=== PATIENT | female | born 1950 | race Caucasian/White ===

== ENCOUNTER 2022-03-24 02:05 | Emergency (ER) | payer MEDICARE, MEDICAID ==
[~2022-03-24] VITALS: Ht 157.5 cm; Wt 74.8 kg
--- NOTE | 2022-03-24 02:30 | NUR ---
Dr Barillas at bedside, MSE in progress.
[2022-03-24 03:06] LABS: ABG BASE EXCESS 1.5 mmol/L; ABG HCO3 25.1 mmol/L; ABG PCO2 35.9 mmHg (35.0-45.0); ABG PH 7.462 (7.350-7.450); ABG PO2 75.2 mmHg (75.0-100.0); ABG SITE LEFT RADIAL; ABG TOTAL HEMOGLOBIN 12.2 G/dL (12.0-16.0); COHb 0.3 % (0.5-1.5); MetHb 0.1 % (0.0-1.5); O2Hb 95.8 % (94.0-97.0); VENT MODE ROOM AIR
[2022-03-24 03:20] LABS: HEMATOCRIT 33.7 % (31.2-41.9); MEAN CORPUSCULAR HEMOGLOBIN 29.1 uug (24.7-32.8); MEAN CORPUSCULAR VOLUME 84.4 fL (75.5-95.3); PLATELET COUNT (AUTO) 294 K/uL (179-408)
[2022-03-24 03:28] LABS: CARBON DIOXIDE 27 mmol/L (21-32); CHLORIDE 93 mmol/L (98-107); CREATININE 0.9 mg/dL (0.6-1.3); GLUCOSE 95 mg/dL (74-106); POTASSIUM 3.2 mmol/L (3.5-5.1); UREA NITROGEN, BLOOD 8 mg/dL (7-18)
[2022-03-24 03:44] LABS: ALANINE AMINOTRANSFERASE 33 U/L (14-59); ALKALINE PHOSPHATASE 66 U/L (50-136); ASPARTATE AMINOTRANSFERASE 15 U/L (15-37); BILIRUBIN,TOTAL 0.5 mg/dL (0.2-1.0); CREATINE KINASE, TOTAL 245 U/L (26-192); LACTATE DEHYDROGENASE 191 U/L (81-234); TOTAL PROTEIN, SERUM 7.4 g/dL (6.4-8.2)
[2022-03-24] MEDS ORDERED: ALBUTEROL SULFATE 2.5 MG/3 ML NEBU NEB ONE (04:45)
[2022-03-24] MEDS ORDERED: IPRATROPIUM BROMIDE 0.5 MG/2.5 ML NEBU NEB ONE (04:45)
[2022-03-24] MEDS ORDERED: ALBUTEROL SULFATE 2.5 MG/3 ML NEBU ONE (04:50)
[2022-03-24] MEDS ORDERED: IPRATROPIUM BROMIDE 0.5 MG/2.5 ML NEBU ONE (04:51)
[2022-03-24] MEDS ORDERED: POTASSIUM CHLORIDE 20 MEQ TAB.PRT.SR PO ONE (05:15)
[2022-03-24] MEDS ORDERED: POTASSIUM CHLORIDE 20 MEQ TAB.PRT.SR ONE (05:18)
[2022-03-24 05:37] LABS: *BILIRUBIN,URIN NEGATIVE (NEGATIVE); *CLARITY,URINE CLEAR (CLEAR); *COLOR,URINE YELLOW (YELLOW); *KETONES,URINE NEGATIVE (NEGATIVE); *UROBILINOGEN,URINE 0.2 E.U./dl (NORMAL); LEUKOCYTE ESTERASE ,URINE TRACE (NEGATIVE); NITRITE, URINE NEGATIVE (NEGATIVE); PH,URINE 6.5 (5.0-8.0); UGLUCOSE NEGATIVE (NEGATIVE)
[2022-03-24 05:40] LABS: *BLOOD, URINE TRACE (NEGATIVE)
[2022-03-24 05:46] LABS: BACTERIA,URINE FEW /HPF (NONE SEEN); RBC,URINE 0-3 /HPF (0-3); SQUAMOUS EPITHELIAL CELL,UR FEW /HPF (NONE SEEN)
--- NOTE | 2022-03-24 05:57 | NUR ---
Patient discharged to home in stable condition. Written and verbal after care instructions given. Patient verbalizes understanding of instructions. Stressed follow up or return to ER for worsening s/s. pt ambulated wtih steady gait. denies pain. no SOB. no chest pain. AOx4
[2022-03-24 05:58] VITALS: BP 114/51
== END 2022-03-24 05:59 | disposition home or self-care (01) ==
LOC: ER 02:16
DX: B34.9 Viral infection, unspecified (principal); Z20.822 Contact with and (suspected) exposure to COVID-19; E87.3 Alkalosis; R79.82 Elevated C-reactive protein (CRP); E87.6 Hypokalemia; E87.1 Hypo-osmolality and hyponatremia; E05.90 Thyrotoxicosis, unspecified without thyrotoxic crisis or storm
CPT/HCPCS: 36415; 36600; 83605; 83615; 84484; 85025; 85730; 86140; 87040; 87086; 87400; 93005; A4663; J3590